=== PATIENT | female | born 1970 | race Two or more races ===

== ENCOUNTER 2019-06-28 00:46 | Emergency (ER) | payer MEDICAID, OTHER ==
[~2019-06-28] VITALS: Ht 157.5 cm; Wt 59.0 kg
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
[2019-06-28] MEDS ORDERED: HYDROMORPHONE 1 MG/1 ML DISP.SYRIN ONE (01:17)
[2019-06-28] MEDS ORDERED: ONDANSETRON 4 MG TAB.RAPDIS ONE (01:17)
[2019-06-28] MEDS ORDERED: LORAZEPAM INJ 2 MG/ML VIAL ONE (01:18)
--- NOTE | 2019-06-28 01:28 | NUR ---
PT TAKEN TO CT
[2019-06-28] MEDS ORDERED: HYDROMORPHONE 1 MG/1 ML DISP.SYRIN IM ONE (01:30)
[2019-06-28] MEDS ORDERED: ONDANSETRON 4 MG TAB.RAPDIS SL ONE (01:30)
[2019-06-28] MEDS ORDERED: LORAZEPAM INJ 2 MG/ML VIAL IM ONE (01:30)
--- NOTE | 2019-06-28 01:47 | NUR ---
PT BACK FROM CT
--- NOTE | 2019-06-28 02:16 | NUR ---
Patient discharged to home in stable condition. Written and verbal after care instructions given. Patient verbalizes understanding of instruction.
[2019-06-28 02:17] VITALS: BP 127/82
== END 2019-06-28 02:18 | disposition home or self-care (01) ==
LOC: ER 00:47
DX: S16.1XXA Strain of muscle, fascia and tendon at neck level, initial encounter (principal); J45.909 Unspecified asthma, uncomplicated; Z98.890 Other specified postprocedural states; V49.49XA Driver injured in collision with other motor vehicles in traffic accident, initial encounter; Y93.89 Activity, other specified; Y92.413 State road as the place of occurrence of the external cause; Y99.8 Other external cause status
CPT/HCPCS: 71045; 72125; 96372 ×2; 99284; J1170; J2060; Q0162